=== PATIENT | female | born 1995 | race Caucasian/White ===

== ENCOUNTER 2016-12-12 13:01 | Outpatient (CLI) | payer OTHER | END 2016-12-12 21:26 | disposition home or self-care (01) | LOC: SUS 13:01 | PROVIDERS: ATTEND Pediatrics | DX: N83.202 Unspecified ovarian cyst, left side (principal); N83.201 Unspecified ovarian cyst, right side | CPT/HCPCS: 76700-TC; 76830-TC; 76857 ==